=== PATIENT | male | born 1975 | race Caucasian/White ===

== ENCOUNTER 2016-05-13 04:00 | Inpatient (IN) | payer OTHER ==
--- NOTE | ~2016-05-13 | PN ---
Unit #: [id number] #: [id number] Patient: LISA PATRICK [id number] [facility] [address] [place] [address] [id number] MR#: [id number] NAME: LISA PATRICK. ROOM: P210 Age: 40 Sex: M Admission Date: 05/13/2016 : 1975 Attending Physician: Eb Ayala M.D. Admitting Physician: Eb Ayala M.D. Primary Care Physician: Primary Care Physician Akanksha STONE PROGRESS NOTES DATE 05/14/2016 DISCUSSION Mr. Patrick is a 40-year-old white male who was seen today and chart was reviewed and case was discussed with the staff. He has been anxious, withdrawn though has not shown any agitation, irritability and has been cooperative with treatment recommendations and has been taking the medications and tolerating them fairly well with no reported side effects. MENTAL STATUS EXAMINATION Young white male who was casually dressed with fair personal hygiene and appears to be in no acute distress or discomfort. He was awake and alert on interaction with intact orientation. His mood was anxious with congruent affect. He denies any suicidal or homicidal ideations. His insight and judgement remain slightly impaired. TREATMENT PLAN 1. Will continue on his current medications and treatment protocol. Will monitor his response to the medications and make further adjustments as needed. 2. Will continue to follow up. Dictated by... Jennifer Hodgson/tierney TD: 05/15/2016 21:03 JOB #: [id number] Unit #: [id number] #: [id number] Patient: LISA PATRICK RUBENJN PROGRESS NOTES X Eb Ayala MD PROGRESS NOTE
--- NOTE | ~2016-05-13 | PA ---
Unit #: [id number] #: [id number] Patient: LISA PATRICK [id number] [facility] [address] [place] [address] [id number] MR#: [id number] NAME: LISA PATRICK. ROOM: P210 Age: 40 Sex: M Admission Date: 05/13/2016 : 1975 Date of Assessment: Attending Physician: Eb Ayala M.D. Admitting Physician: Eb Ayala M.D. Primary Care Physician: Primary Care Physician No PSYCHIATRIC ASSESSMENT DATE OF SERVICE 05/13/2016. IDENTIFYING DATA Mr. Patrick is a 40-year-old single white male, who is a resident of [place], [place] and was self-referred to the hospital on a voluntary basis. CHIEF COMPLAINT "I'm drinking and drugging." HISTORY OF PRESENT ILLNESS Mr. Patrick is a 40-year-old white male, who was self-referred to the hospital. Upon presentation, reports that he is noting up to half a gram of heroin a day and reports that his last use was early last night and that he had a couple of fifths of alcohol earlier and that he has been having suicidal ideation and thoughts keeping getting stronger and that he has had thoughts of doing something to make his thoughts go away and reports that he has attempted suicide years ago. He reports that he has been using heroin for 6 to 7 years and has been having significant withdrawal symptoms. He also reports increasing depression, anxiety, irritability, restlessness, feelings of hopelessness, and helplessness, and suicidal ideation. SUBSTANCE ABUSE HISTORY The patient reports opioids to be his drug of choice and has been using heroin regularly and has poor social support system. MENTAL STATUS EXAMINATION Young white male, who was casually dressed with fair personal hygiene, appears to be in no acute distress or discomfort. He was awake and alert on interaction with intact orientation to time, place, and person. His mood was anxious and depressed with a congruent affect. His speech was slow and goal directed. His thought processes were disorganized with some looseness of associations and suicidal ideations. His insight and judgment remain significantly impaired. DIAGNOSTIC IMPRESSION Psychiatric: Major depressive disorder, recurrent, moderate, without psychotic features; opioid dependence, moderate. Medical: None. Stressors: Moderate psychosocial stressors. TREATMENT PLAN Unit #: [id number] #: [id number] Patient: LISA PATRICK 1. The patient has presented with history of mood disorder and has been decompensating and will need inpatient hospitalization for safety and stabilization. We will start him back on his home medications. We will adjust the medications and monitor response. 2. Supportive therapy was provided to the patient. WILLINGNESS TO HELP SELF The patient appears to be willing to help self. STRENGTHS 1. Communicative. 2. Cooperative. PROBLEM LIST 1. Chronic dysphoric symptoms. 2. Poor social support system. DISCHARGE CRITERIA This will be contingent upon the patient's ability to go through detox without having any significant withdrawal symptoms as well as his ability to stay safe to himself and others, particularly after discharge from the hospital. Dictated by... Jennifer Hodgson/elle TD: 05/13/2016 07:09 JOB #: [id number] PSYCHIATRIC ASSESSMENT X Eb Ayala MD X PSYCHIATRIC ASSESSMENT
--- NOTE | ~2016-05-13 | HP ---
Unit #: [id number] #: [id number] Patient: SEDRICK LACEY [id number] [place] [address] [id number] I MR#: [id number] NAME: SEDRICK LACEY. ROOM: [facility] Age: 40 Sex: M Admission Date: 05/13/2016 : 1975 Attending Physician: Eb Ayala M.D. Admitting Physician: Eb Ayala M.D. Primary Care Physician: Primary Care Physician No HISTORY AND PHYSICAL HISTORY OF PRESENT ILLNESS Sedrick is a 40-year-old male admitted to [address] [place] [address] on 05/13/2016 for detox from heroin. PAST MEDICAL HISTORY None. PAST SURGICAL HISTORY Inguinal hernia repair. ALLERGIES None. SOCIAL HISTORY He smokes 1 pack of cigarettes daily. Occasional alcohol use and daily use of heroin. He is currently single and living with a friend. FAMILY HISTORY Noncontributory. REVIEW OF SYSTEMS CONSTITUTIONAL: No fever or chills. HEENT: Denies any sore throat, ear pain or runny nose. CARDIOVASCULAR: Denies chest pain, irregular heart rhythm or palpitations. CHEST: Denies shortness of breath or cough. No hemoptysis. GASTROINTESTINAL: Denies nausea, vomiting, diarrhea or chronic constipation. ENDOCRINE: Denies history of increased thirst or urination. No recent significant weight loss or gain. GENITOURINARY: Denies dysuria, frequency, or hematuria. SKIN: Denies any rashes. HEMATOLOGIC: Denies history of increased bleeding or bruising. MUSCULOSKELETAL: Denies any hot, swollen joints. No generalized muscle pain. NEUROLOGIC: Denies problems with vision or speech. No frequent, severe headaches. No numbness, tingling or weakness in any extremities. Denies loss of bladder or bowel control. CURRENT MEDICATIONS None. PHYSICAL EXAMINATION GENERAL: Alert, oriented, in no acute distress. Unit #: [id number] #: [id number] Patient: SEDRICK LACEY VITAL SIGNS: Blood pressure 133/95, heart rate 104. HEIGHT: 5 feet 7. WEIGHT: 168 pounds. SKIN: Warm and dry without rash or lesion. HEENT: Normocephalic. TMs not viewed. Oral and nasal passages clear. Conjunctivae clear. PERRLA. EOMs intact. NECK: Supple without lymphadenopathy or thyromegaly. HEART: Regular rate and rhythm without murmur. LUNGS: Clear. ABDOMEN: Soft, nontender, without masses or hepatosplenomegaly. : Not done. EXTREMITIES: No evidence of cyanosis, clubbing or edema. Moves all without focal deficit. NEUROLOGICAL: Grossly within normal limits. Cranial Nerves: II: Visual maldonado are intact. III, IV AND : Extraocular movements are intact. Pupils are equal, round and reactive to light. V: Facial sensation is grossly normal. VII: Facial movements and expression are normal. VIII: Auditory acuity grossly intact. IX, X: Uvula is midline. Phonation is normal. XI: Patient shrugs shoulders and turns head normally. XII: Tongue protrudes in the midline. Sensory and Motor Function: Sensory and motor sensation is grossly normal. Motor: moves all extremities well. Coordination: Gait is normal. Deep Tendon Reflexes: Intact. IMPRESSION Psychiatric admission. RECOMMENDATIONS PSYCHIATRIC: Per psychiatrist. MEDICAL: No contraindications to participate in facility's activities. MEDICAL PROGNOSIS Good. MEDICAL CONDITION Stable. Dictated by... Shari Hopkins/tierney TD: 05/13/2016 18:47 JOB #: [id number] Unit #: [id number] #: [id number] Patient: SEDRICK LACEY HISTORY AND PHYSICAL X JUAN MOORE APRN X HISTORY AND PHYSICAL
--- NOTE | ~2016-05-13 | PN ---
Unit #: [id number] #: [id number] Patient: LISA PATRICK [id number] [facility] [address] [place] [address] [id number] MR#: [id number] NAME: LISA PATRICK. ROOM: P210 Age: 40 Sex: M Admission Date: 05/13/2016 : 1975 Attending Physician: Eb Ayala M.D. Admitting Physician: Eb Ayala M.D. Primary Care Physician: Primary Care Physician Akanksha STONE PROGRESS NOTES DATE 05/15/2016 DISCUSSION Mr. Patrick is a 40-year-old, white male who was seen today and chart was reviewed and case was discussed with the staff. He has been anxious, withdrawn and seclusive to himself and reports still having some persistent detox symptoms. Meanwhile, he has been taking medications and tolerating them fairly well. MENTAL STATUS EXAM Young white male who was casually dressed with fair personal hygiene, appears to be in slight distress and discomfort. He was awake, alert with intact orientation. His mood was anxious with congruent affect. He denies any suicidal or homicidal ideation. His insight and judgement remains slightly impaired. TREATMENT PLAN 1. We will continue him on his current medications and treatment protocol. We will monitor his response to the medication and make further adjustments as needed. 2. We will continue to follow up. Dictated by... Jennifer Hodgson/masoud TD: 05/18/2016 04:16 JOB #: [id number] Unit #: [id number] #: [id number] Patient: LISA PATRICK RUBENJN PROGRESS NOTES X Eb Ayala MD PROGRESS NOTE
--- NOTE | ~2016-05-13 | DS ---
Unit #: [id number] #: [id number] [facility]CK [id number] [facility] [address] [place] [address] [id number] MR#: [id number] NAME: LISA PATRICK ROOM: [facility] Age: 40 Sex: M Admission Date: 05/13/2016 : 1975 Discharge Date: 05/17/2016 Attending Physician: Eb Ayala M.D. Primary Care Physician: Primary Care Physician No DISCHARGE SUMMARY IDENTIFYING DATA Mr. Patrick is a 40-year-old single white male, who is a resident of [place], [place] and was self-referred to the hospital on a voluntary basis. DISCHARGE DIAGNOSES Psychiatric: Major depressive disorder, recurrent, moderate, without psychotic features; opioid dependence, moderate. Medical: None. Stressors: Moderate psychosocial stressors. HISTORY OF PRESENT ILLNESS Please see initial psychiatric evaluation for details. PAST PSYCHIATRIC HISTORY Please see initial psychiatric evaluation for details. PAST MEDICAL HISTORY Please see initial psychiatric evaluation for details. HOSPITAL COURSE The patient was admitted to the adult chemical dependency and psychiatric unit at [facility] and was oriented to the hospital environment. Routine p.r.n. medications were initiated, and he was started back on his home medications and detox protocol was initiated and was closely monitored. He was taking the medications regularly and was tolerating them fairly well and was able to show a decent and therapeutic response and was willing to continue treatment on an outpatient basis and as such, it was decided that he will be discharged home and will continue treatment on an outpatient basis. DISCHARGE MEDICATIONS None. DISCHARGE CONDITION Stable. PROGNOSIS Fair. Dictated by... Eb Ayala M.D. Unit #: [id number] #: [id number] Patient: LISA PATRICK IAA/modl TD: 05/17/2016 06:57 JOB #: [id number] DISCHARGE SUMMARY X Eb Ayala MD X DISCHARGE SUMMARY
[2016-05-14 09:33] LABS: BASOPHIL# 0.1 X10e3 (0-0.3); BASOPHIL% 0.7 % (0-2.5); EOSINOPHIL# 0.1 X10e3 (0-0.7); EOSINOPHIL% 1.9 % (0.0-7.0); HEMATOCRIT 40.8 % (38.0-50.0); HEMOGLOBIN 13.6 gm/dL (13.0-16.0); LYMPHOCYTE# 1.7 X10e3 (1.0-3.5); LYMPHOCYTE% 21.5 % (17.0-45.0); MEAN CELL VOLUME 88.6 FL (83-96); MEAN CORPUSCULAR HEMOGLOBIN 29.6 PG (28-34); MEAN CORPUSCULAR HGB CONC 33.4 g/dL (30-36); MEAN PLATELET VOLUME 8.6 FL (6.5-11.5); MONOCYTE# 0.7 X10e3 (0-1.0); NEUTROPHIL# 5.2 X10e3 (1.5-7.1); NEUTROPHIL% 66.9 % (40-75); PLATELET COUNT 239 X10e3 (140-420); RED CELL DISTRIBUTION WIDTH 13.1 % (11.0-15.5); WHITE BLOOD COUNT 7.7 X10e3 (4.0-10.5)
[2016-05-14 09:40] LABS: DIFF IND NO
[2016-05-14 09:53] LABS: THYROID STIMULATING HORMONE 0.1 uIU/ml (0.34-5.60)
[2016-05-14 10:03] LABS: ALBUMIN SERUM 3.2 g/dL (3.5-5.0); ALKALINE PHOSPHATASE 75 U/L (32-92); ALT (SGPT) 30 U/L (10-40); AST (SGOT) 23 U/L (10-42); BILIRUBIN,TOTAL 0.6 mg/dL (0.2-2.0); BLOOD UREA NITROGEN 11 mg/dL (9-23); BUN/CREATININE RATIO 15.71; CALCIUM SERUM 8.8 mg/dL (8.4-10.2); CARBON DIOXIDE 26 mmol/L (22-31); CHLORIDE 104 mmol/L (100-111); CREATININE SERUM 0.7 mg/dL (0.6-1.4); FREE THYROXIN (T4) 0.98 ng/dL (0.58-1.64); GLOM FILT RATE Estimated ABOVE60 mL/min (>60); GLUCOSE FASTING 141 mg/dL (70-110); POTASSIUM 3.7 mmol/L (3.5-5.1); PROTEIN TOTAL SERUM 5.7 g/dL (6.0-8.3); SODIUM 140 mmol/L (135-145)
[2016-05-15 13:46] LABS: URINE APPEARANCE CLEAR; URINE BILIRUBIN NEG (NEG); URINE BLOOD NEG (NEG); URINE COLOR YELLOW; URINE GLUCOSE NEG (NEG); URINE KETONE NEG (NEG); URINE LEUKOCYTE ESTERASE NEG (NEG); URINE NITRATE NEG (NEG); URINE PROTEIN NEG (NEG); URINE SPECIFIC GRAVITY 1.015 (1.003-1.035); URINE UROBILINOGEN 0.2 MG/DL (NEG)
[2016-05-15 14:00] LABS: AMPHETAMINE POS (NEG); BARBITURATES NEG (NEG); BENZODIAZEPINES NEG (NEG); COCAINE NEG (NEG); MARIJUANA POS (NEG); OPIATES POS (NEG); TRICYCLIC ANTIDEPRESSANTS NEG (NEG); U METHADONE NEG (NEG)
== END 2016-05-17 10:10 | DRG 885 ==
LOC: P2S 04:00
PROVIDERS: Psychiatry & Neurology Psychiatry
PROC: HZ2ZZZZ Detoxification Services for Substance Abuse Treatment (ICD-10-PCS; principal; 2016-05-13)
DX: F33.1 Major depressive disorder, recurrent, moderate (principal); F10.20 Alcohol dependence, uncomplicated; F17.200 Nicotine dependence, unspecified, uncomplicated
CPT/HCPCS: 80053; 80307; 81003; 84439; 84443; 85025; 86592

== ENCOUNTER 2016-05-18 05:27 | Inpatient (IN) | payer OTHER ==
--- NOTE | ~2016-05-18 | DS ---
Unit #: [id number] #: [id number] Patient: LISA LACEY [id number] [facility] [place] [address] [id number] I MR#: [id number] NAME: LISA LACEY. ROOM: [facility] Age: 40 Sex: M Admission Date: 05/18/2016 : 1975 Discharge Date: 05/21/2016 Attending Physician: Eb Ayala M.D. Primary Care Physician: Primary Care Physician No DISCHARGE SUMMARY IDENTIFYING DATA Mr. Lacey is a 40-year-old single white male who is a resident of [place], [place] and was self-referred to the hospital on voluntary basis. DISCHARGE DIAGNOSES Psychiatric: Major depressive disorder, recurrent, moderate, without psychotic features; opioid abuse, moderate; methamphetamine abuse, moderate; alcohol abuse, moderate. Medical: None. Stressors: Moderate psychosocial stressors. HISTORY OF PRESENT ILLNESS Please see initial psychiatric evaluation for details. PAST PSYCHIATRIC HISTORY Please see initial psychiatric evaluation for details. PAST MEDICAL HISTORY Please see initial psychiatric evaluation for details. HOSPITAL COURSE The patient was admitted to the adult psychiatric unit at [facility] and was oriented to the hospital environment. Routine p.r.n. medications were initiated, and he was started back on his home medications and was closely monitored. He was taking the medications regularly and was tolerating them fairly well and was able to show a decent therapeutic response with improvement in depression and anxiety and was willing to continue treatment on an outpatient basis and as such, it was decided that he will be discharged home and will continue treatment on an outpatient basis. DISCHARGE MEDICATIONS Celexa 20 mg a day for depression, Vistaril 50 mg t.i.d. for anxiety, doxepin 50 mg at bedtime for sleep. DISCHARGE CONDITION Stable. PROGNOSIS Fair. Dictated by... Unit #: [id number] #: [id number] Patient: LISA LACEY Jennifer Hodgson/elle TD: 05/21/2016 07:22 JOB #: [id number] DISCHARGE SUMMARY X Eb Ayala MD X DISCHARGE SUMMARY
--- NOTE | ~2016-05-18 | PN ---
Unit #: [id number] #: [id number] Patient: LISA PATRICK [id number] [facility] [address] [place] [address] [id number] I MR#: [id number] NAME: LISA PATRICK. ROOM: [facility] Age: 40 Sex: M Admission Date: 05/18/2016 : 1975 Attending Physician: Eb Ayala M.D. Admitting Physician: Eb Ayala M.D. Primary Care Physician: Primary Care Physician Akanksha STONE PROGRESS NOTES DATE 05/20/2016 DISCUSSION Mr. Patrick is a 40-year-old white male who was seen today and chart was reviewed and case was discussed with the staff. He has been anxious, withdrawn, depressed and rather seclusive to himself. Meanwhile, he has been cooperative with treatment recommendations and has been taking medications and tolerating them fairly well with no reported side effects. MENTAL STATUS EXAMINATION Young white male who was casually dressed with fair personal hygiene and appears to be in no acute distress or discomfort. He was awake and alert on interaction with intact orientation. His mood was anxious with congruent affect. His speech is slow and goal-directed. He denies any suicidal or homicidal ideations and also denies any auditory or visual hallucinations. His insight and judgement remains slightly impaired. TREATMENT PLAN 1. Will continue his current medications and treatment protocol. Will monitor his response to the medications and make further adjustments as needed. 2. Will continue to follow up. Dictated by... Jennifer Hodgson/tierney TD: 05/21/2016 16:53 JOB #: [id number] Unit #: [id number] #: [id number] Patient: LISA PATRICK BERTHA PROGRESS NOTES X Eb Ayala MD PROGRESS NOTE
--- NOTE | ~2016-05-18 | HP ---
Unit #: [id number] #: [id number] Patient: SEDRICK LACEY [id number] [facility] [address] [place] [address] [id number] MR#: [id number] NAME: SEDRICK LACEY. ROOM: [facility] Age: 40 Sex: M Admission Date: 05/18/2016 : 1975 Attending Physician: Eb Ayala M.D. Admitting Physician: Eb Ayala M.D. Primary Care Physician: Primary Care Physician No HISTORY AND PHYSICAL HISTORY OF PRESENT ILLNESS Sedrick is a 40 year old admitted to [facility] because of his continued drug use. The patient was seen and H and P dated 05/13/2016 was reviewed. This is current. No changes. Please see H and P dated 05/13/2016. Dictated by... Suni Ayers P.A.-C. for Jennifer Allen/masoud TD: 05/19/2016 02:45 JOB #: [id number] HISTORY AND PHYSICAL X Suni Ayers HISTORY AND PHYSICAL
--- NOTE | ~2016-05-18 | PN ---
Unit #: [id number] #: [id number] Patient: LISA PATRICK [id number] [facility] [address] [place] [address] [id number] I MR#: [id number] NAME: LISA PATRICK. ROOM: [facility] Age: 40 Sex: M Admission Date: 05/18/2016 : 1975 Attending Physician: Eb Ayala M.D. Admitting Physician: Eb Ayala M.D. Primary Care Physician: Primary Care Physician Akanksha CASTILLO NOTES DATE OF SERVICE: 05/19/2016 SUBJECTIVE Mr. Patrick is a 40-year-old white male, who was seen today and chart was reviewed, and case was discussed with the staff. He has been anxious, withdrawn, and rather seclusive to himself. Meanwhile, he has been cooperative with treatment recommendations and has been taking medications and tolerating them fairly well with no reported side effects. MENTAL STATUS EXAMINATION Young white male, who was casually dressed with fair personal hygiene, appears to be in no acute distress or discomfort. He was awake and alert on interaction with intact orientation. His mood was anxious with a congruent affect. His speech was slow and goal directed. He denies any suicidal or homicidal ideations. His insight and judgment remain slightly impaired. TREATMENT PLAN 1. We will continue him on his current medications and treatment protocol. We will monitor his response to the medications and make further adjustments as needed. 2. We will continue to follow up. Dictated by... Jennifer Hodgson/elle TD: 05/20/2016 04:47 JOB #: [id number] [facility] PROGRESS NOTES X Eb Ayala MD PROGRESS NOTE
--- NOTE | ~2016-05-18 | PN ---
Unit #: [id number] #: [id number] Patient: LISA PATRICK [id number] [facility] [address] [place] [address] [id number] I MR#: [id number] NAME: LISA PATRICK. ROOM: [facility] Age: 40 Sex: M Admission Date: 05/18/2016 : 1975 Attending Physician: Eb Ayala M.D. Admitting Physician: Eb Ayala M.D. Primary Care Physician: Primary Care Physician Akanksha STONE PROGRESS NOTES DATE OF SERVICE: 05/16/2016 SUBJECTIVE Mr. Patrick is a 40-year-old white male who was seen today and chart was reviewed and case was discussed with the staff. He has been doing better and reports still being in distress or discomfort. Meanwhile, he has been taking the medications and tolerating them fairly well. MENTAL STATUS EXAMINATION Young white male who was casually dressed with a fair personal hygiene and appears to be in no acute distress or discomfort. He was awake and alert on intact orientation. His mood was anxious with a congruent affect. He denies any suicidal or homicidal ideations. His insight and judgment remain slightly impaired. TREATMENT PLAN 1. We will continue him on his current treatment protocol. We will monitor his response and make further adjustments as needed. 2. We will continue to follow up. Dictated by... Jennifer Hodgson/elle TD: 05/18/2016 03:53 JOB #: [id number] [facility] PROGRESS NOTES X Eb Ayala MD PROGRESS NOTE
--- NOTE | ~2016-05-18 | PA ---
Unit #: [id number] #: [id number] Patient: LISA PATRICK [id number] [facility] [address] [place] [address] [id number] MR#: [id number] NAME: LISA PATRICK. ROOM: [facility] Age: 40 Sex: M Admission Date: 05/18/2016 : 1975 Date of Assessment: 05/18/2016 Attending Physician: Eb Ayala M.D. Admitting Physician: Eb Ayala M.D. Primary Care Physician: Primary Care Physician No PSYCHIATRIC ASSESSMENT DATE OF SERVICE 05/18/2016. IDENTIFYING DATA Mr. Patrick is a 40-year-old single white male who is a resident of [place], [place] and was just discharged from my care yesterday and was self-referred back to the hospital. CHIEF COMPLAINT "I have been feeling overwhelmed and I'm suicidal." HISTORY OF PRESENT ILLNESS Mr. Patrick is a 40-year-old white male with history of mood disorder, who was just discharged from my care yesterday and self-referred back to the hospital reporting increasing depression, stating that after being discharged from this facility, he felt overwhelmed with idea of not having medication to leave with his depression and reports having heavy chest and not breathing due to having panic attacks, and reports not feeling safe while at his friend's house, he found a gun and wanting to end his life and while his friend was in the shower he found his friend's gun and was looking for the bullet. When his friend came out of the shower and the patient told his friend he wanted to end his life and he was wanting the bullets and friend called [facility] and brought him here for assessment. On evaluation by me, the patient was seen to be very withdrawn, depressed, reports feeling overwhelmed and stressed out, and reports feelings of hopelessness and helplessness, and suicidal ideations with intent and plan. SUBSTANCE ABUSE HISTORY The patient reports history of alcohol, opioids, and methamphetamine abuse with the last use of opioids and methamphetamine on 05/12/2016 and last use of alcohol last night. PAST PSYCHIATRIC HISTORY The patient has had history of multiple inpatient psychiatric hospital[facility], [facility], [facility], [facility], [facility] and review of the medical records indicate that currently he is not active in any treatment program, is not seeing a psychiatrist, and not taking any psychotropic medications. PAST MEDICAL HISTORY No acute or chronic medical illnesses. Unit #: [id number] #: [id number] Patient: LISA PATRICK ALLERGIES No known medication allergies. PERSONAL AND SOCIAL HISTORY A 40-year-old white male who reports that he is single, unemployed, and essentially homeless and has poor social support system. MENTAL STATUS EXAMINATION Young white male who was casually dressed with fair personal hygiene, appears to be in no acute distress or discomfort. He was awake and alert on interaction with intact orientation to time, place, and person. His mood was anxious and depressed with a congruent affect. His speech was slow and restricted in content. His thought processes were disorganized with some looseness of associations and flight of ideas, and suicidal ideations. His insight and judgment remain significantly impaired. DIAGNOSTIC IMPRESSION Psychiatric: Major depressive disorder, recurrent, moderate, without psychotic features; opioid abuse, moderate; methamphetamine abuse, moderate; alcohol abuse, moderate. Medical: None. Stressors: Moderate psychosocial stressors. TREATMENT PLAN 1. The patient has presented with a history of substance abuse and mood disorder, and has been decompensating and will need inpatient hospitalization for safety and stabilization. We will start him back on his home medications. We will adjust the medications and monitor response. 2. Supportive therapy was provided to the patient. ESTIMATED LENGTH OF STAY 5 to 7 days. ABILITY TO HELP SELF Limited. WILLINGNESS TO HELP SELF The patient appears to be willing to help self. STRENGTHS 1. Communicative. 2. Cooperative. PROBLEMS 1. Chronic dysphoric symptoms. 2. Poor social support system. DISCHARGE CRITERIA This will be contingent upon the patient's ability to show resolution of his depression and anxiety, and his ability to stay safe to himself, particularly after discharge from the hospital. Dictated by... Jennifer Hodgson/elle Unit #: [id number] #: [id number] Patient: LISA PATRICK TD: 05/19/2016 02:01 JOB #: [id number] PSYCHIATRIC ASSESSMENT X Eb Ayala MD X PSYCHIATRIC ASSESSMENT
== END 2016-05-21 10:00 | disposition home or self-care (01) | DRG 885 ==
LOC: P2L 05:27
PROC: HZ2ZZZZ Detoxification Services for Substance Abuse Treatment (ICD-10-PCS; principal; 2016-05-18)
DX: F33.1 Major depressive disorder, recurrent, moderate (principal); F11.10 Opioid abuse, uncomplicated; F15.10 Other stimulant abuse, uncomplicated; F10.10 Alcohol abuse, uncomplicated; F17.210 Nicotine dependence, cigarettes, uncomplicated

== ENCOUNTER 2016-06-09 00:31 | Inpatient (IN) | payer OTHER ==
--- NOTE | ~2016-06-09 | PN ---
Unit #: [id number] #: [id number] Patient: LISA PATRICK [id number] [facility] [address] [place] [address] [id number] MR#: [id number] NAME: LISA PATRICK. ROOM: P208 Age: 40 Sex: M Admission Date: 06/09/2016 : 1975 Attending Physician: Eb Ayala M.D. Admitting Physician: Eb Ayala M.D. Primary Care Physician: Primary Care Physician Akanksha STONE PROGRESS NOTES DATE 06/14/2016 DISCUSSION Mr. Patrick is a 40-year-old, white male who was seen today and chart was reviewed and case was discussed with the staff. He has been anxious, withdrawn though has not shown any agitation and appears to be doing better coming out of the detox. He has been taking medications and tolerating them fairly well with no reported side effects. MENTAL STATUS EXAM Young white male who was casually dressed with fair personal hygiene, appears to be in no acute distress or discomfort. He was awake and alert on interaction with intact orientation. His mood was anxious with congruent affect. His speech was slow and goal directed. He denies any suicidal or homicidal ideation. His insight and judgement remains slightly impaired. TREATMENT PLAN 1. We will continue him on his current treatment protocol. We will monitor his response to medication and make further adjustments as needed. 2. We will continue to follow up. Dictated by... Jennifer Hodgson/masoud TD: 06/16/2016 04:27 JOB #: [id number] Unit #: [id number] #: [id number] Patient: LISA PATRICK PROGRESS NOTES Page 1 of 1 X Eb Ayala MD PROGRESS NOTE
--- NOTE | ~2016-06-09 | PN ---
Unit #: [id number] #: [id number] Patient: LISA PATRICK [id number] [facility] [address] [place] [address] [id number] MR#: [id number] NAME: LISA PATRICK. ROOM: P208 Age: 40 Sex: M Admission Date: 06/09/2016 : 1975 Attending Physician: Eb Ayala M.D. Admitting Physician: Eb Ayala M.D. Primary Care Physician: Primary Care Physician Akanksha CASTILLO NOTES DATE OF SERVICE 06/10/2016 DISCUSSION Mr. Patrick is a 40-year-old white male who was seen today. Chart was reviewed and case was discussed with the staff. He has been anxious, withdrawn, and seclusive to himself as he was lying in his bed and reports not feeling good and reports mood swings, irritability, and significant detox symptoms, and described himself to be in distress and discomfort. MENTAL STATUS EXAMINATION Young white male who is casually dressed with fair personal hygiene and appears to be in no acute distress or discomfort. He was awake and alert with impaired attention and concentration. His mood is anxious with a congruent affect. Speech is slow and restricted in content. His thought processes were disorganized with some looseness of associations. His insight and judgment remain significantly impaired. TREATMENT PLAN 1. We will continue him on his current medications and treatment protocol. We will monitor his response to the medications and make further adjustments as needed. 2. We will continue to follow up. Dictated by... Jennifer Hodgson/nobleg TD: 06/11/2016 11:19 JOB #: [id number] Unit #: [id number] #: [id number] Patient: LISA PATRICK BERTHA PROGRESS NOTES Page 1 of 1 X Eb Ayala MD PROGRESS NOTE
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
--- NOTE | ~2016-06-09 | PN ---
Unit #: [id number] #: [id number] Patient: LISA PATRICK [id number] [facility] [address] [place] [address] [id number] MR#: [id number] NAME: LISA PATRICK. ROOM: P208 Age: 40 Sex: M Admission Date: 06/09/2016 : 1975 Attending Physician: Eb Ayala M.D. Admitting Physician: Eb Ayala M.D. Primary Care Physician: Primary Care Physician Akanksha STONE PROGRESS NOTES DATE OF SERVICE: 06/12/2016 SUBJECTIVE Mr. Patrick is a 40-year-old white male who was seen today and chart was reviewed, and case was discussed with the staff. He has been anxious, withdrawn, though has not shown any agitation, irritability, or behavior problems, and has been cooperative with treatment recommendations and has been taking the medications and tolerating them fairly well with no reported side effects. MENTAL STATUS EXAMINATION Young white male who was casually dressed with fair personal hygiene, appears to be in no acute distress or discomfort. He was awake and alert on interaction with intact orientation. His mood was anxious with a congruent affect. His speech was slow and restricted in content. He denies any suicidal or homicidal ideation, and also denies any auditory or visual hallucinations. His insight and judgment remain slightly impaired. TREATMENT PLAN 1. We will continue him on his current medications and treatment protocol. We will monitor his response and make further adjustments as needed. 2. We will continue to follow up. Dictated by... Jennifer Hodgson/elle TD: 06/12/2016 16:32 JOB #: [id number] Unit #: [id number] #: [id number] Patient: LISA PATRICK PROGRESS NOTES Page 1 of 1 X Eb Ayala MD PROGRESS NOTE
--- NOTE | ~2016-06-09 | PN ---
Unit #: [id number] #: [id number] Patient: LISA PATRICK [id number] [facility] [address] [place] [address] [id number] I MR#: [id number] NAME: LISA PATRICK. ROOM: P208 Age: 40 Sex: M Admission Date: 06/09/2016 : 1975 Attending Physician: Eb Ayala M.D. Admitting Physician: Eb Ayala M.D. Primary Care Physician: Primary Care Physician Akanksha CASTILLO NOTES DATE OF SERVICE 06/11/2016 DISCUSSION Mr. Patrick is a 40-year-old white male who was seen today. Chart was reviewed and case was discussed with the staff. The patient has been anxious, withdrawn, and in distress and discomfort and seclusive to himself. Reports not feeling much better. Meanwhile, he has been taking the medications and tolerating them fairly well with no reported side effects. MENTAL STATUS EXAMINATION Young white male who is casually dressed with fair personal hygiene, appears to be in no acute distress or discomfort. He was awake and alert on interaction with intact orientation. His mood is anxious with congruent affect. His speech is slow and restricted in content. He denies any suicidal or homicidal ideations. His insight and judgment remain slightly impaired. TREATMENT PLAN 1. We will continue him on his current medications and treatment protocol. We will monitor his response to the medications and make further adjustments as needed. 2. We will continue to follow up. Dictated by... Eb Ayala M.D. IAA/bzg TD: 06/11/2016 11:25 JOB #: [id number] Unit #: [id number] #: [id number] Patient: LISA PATRICK PROGRESS NOTES Page 1 of 1 X Eb Ayala MD PROGRESS NOTE
--- NOTE | ~2016-06-09 | DS ---
Unit #: [id number] #: [id number] [facility]: [facility] [id number] [facility] [address] [place] [address] [id number] MR#: [id number] NAME: LISA PATRICK. ROOM: P208 Age: 40 Sex: M Admission Date: 06/09/2016 : 1975 Discharge Date: 06/15/2016 Attending Physician: Eb Ayala M.D. DISCHARGE SUMMARY IDENTIFYING DATA Mr. Patrick is a 40-year-old single white male, who is a resident of [place], [place], and is known to us from previous encounter, and was self-referred to the hospital on a voluntary basis. DISCHARGE DIAGNOSES Psychiatric: Major depressive disorder, recurrent, moderate, with psychosis; opioid dependence, moderate and acute withdrawals; methamphetamine dependence, moderate. Medical: None. Stressors: Moderate psychosocial stressors. HISTORY OF PRESENT ILLNESS Please see initial psychiatric evaluation for details. PAST PSYCHIATRIC HISTORY Please see initial psychiatric evaluation for details. PAST MEDICAL HISTORY Please see initial psychiatric evaluation for details. HOSPITAL COURSE The patient was admitted to the adult psychiatric and chemical dependency unit at [facility] and was oriented to the hospital environment. Routine p.r.n. medications were initiated, and he was started back on his home medications and detox protocol was initiated, and he was also started back on his Effexor and Seroquel and was closely monitored. He was taking the medications regularly and was tolerating them fairly well and was able to show a decent and therapeutic response with improvement in depressive symptoms and was willing to continue treatment on an outpatient basis and was denying any suicidal or homicidal ideations, and was not seen to be a danger to self or anyone else, and as such, it was decided that he will be discharged home and will continue treatment on an outpatient basis. DISCHARGE MEDICATIONS Seroquel 100 mg at bedtime for mood disorder, and Effexor XR 75 mg in the morning for depression. DISCHARGE CONDITION Stable. PROGNOSIS Fair. Unit #: [id number] #: [id number] Patient: LISA PATRICK Dictated by... Eb Ayala M.D. IAA/modl TD: 06/15/2016 07:56 JOB #: [id number] DISCHARGE SUMMARY Page 1 of 1 X Eb Ayala MD DISCHARGE SUMMARY
--- NOTE | ~2016-06-09 | HP ---
Unit #: [id number] #: [id number] Patient: LISA LACEY [id number] [facility] [address] [place] [address] [id number] I MR#: [id number] NAME: LISA LACEY. ROOM: P208 Age: 40 Sex: M Admission Date: 06/09/2016 : 1975 Attending Physician: Eb Ayala M.D. Admitting Physician: Eb Ayala M.D. Primary Care Physician: Primary Care Physician No HISTORY AND PHYSICAL HISTORY OF PRESENT ILLNESS The patient is a 40 year old admitted to [address] [place] [address] because of his continued drug use. He has had numerous admissions to this facility for treatment of the same. The patient was seen and H and P dated 05/13/2016 was reviewed. This is current. No changes. Please see H and P dated 05/13/2016. Dictated by... Suni Ayers P.A.-C. for Jennifer Allen/tam TD: 06/10/2016 07:33 JOB #: [id number] HISTORY AND PHYSICAL Page 1 of 1 X Suni Ayers HISTORY AND PHYSICAL
--- NOTE | ~2016-06-09 | PN ---
Unit #: [id number] #: [id number] Patient: LISA PATRICK [id number] [facility] [address] [place] [address] [id number] MR#: [id number] NAME: LISA PATRICK. ROOM: P208 Age: 40 Sex: M Admission Date: 06/09/2016 : 1975 Attending Physician: Eb Ayala M.D. Admitting Physician: Eb Ayala M.D. Primary Care Physician: Primary Care Physician Akanksha CASTILLO NOTES DATE OF SERVICE: 06/13/2016 SUBJECTIVE Mr. Patrick is a 40-year-old white male who was seen today and chart was reviewed, and case was discussed with the staff. He has been anxious, withdrawn, though has not shown any agitation and has been cooperative with treatment recommendations, and has been taking the medications and tolerating them fairly well with no reported side effects. MENTAL STATUS EXAMINATION Young white male who was casually dressed with fair personal hygiene, appears to be in no acute distress or discomfort. He was awake and alert on interaction with intact orientation. His mood was anxious with a congruent affect. He denies any suicidal or homicidal ideation. His insight and judgment remain slightly impaired. TREATMENT PLAN 1. We will continue him on his current treatment protocol. We will monitor his response and make further adjustments as needed. 2. We will continue to follow up. Dictated by... Jennifer Hodgson/elle TD: 06/13/2016 13:23 JOB #: [id number] BERTHA PROGRESS NOTES Page 1 of 1 X Eb Ayala MD PROGRESS NOTE
[2016-06-09 09:39] LABS: BASOPHIL% 0.5 % (0-2.5); EOSINOPHIL# 0.2 X10e3 (0-0.7); EOSINOPHIL% 2.4 % (0.0-7.0); HEMATOCRIT 43.5 % (38.0-50.0); HEMOGLOBIN 14.5 gm/dL (13.0-16.0); LYMPHOCYTE# 1.8 X10e3 (1.0-3.5); LYMPHOCYTE% 24.2 % (17.0-45.0); MEAN CORPUSCULAR HEMOGLOBIN 29.2 PG (28-34); MEAN CORPUSCULAR HGB CONC 33.2 g/dL (30-36); MEAN PLATELET VOLUME 8.5 FL (6.5-11.5); MONOCYTE# 0.9 X10e3 (0-1.0); MONOCYTE% 11.8 % (3.0-12.0); NEUTROPHIL# 4.5 X10e3 (1.5-7.1); NEUTROPHIL% 61.1 % (40-75); PLATELET COUNT 239 X10e3 (140-420); RED BLOOD COUNT 4.95 X10e (3.90-5.60); RED CELL DISTRIBUTION WIDTH 13.3 % (11.0-15.5); WHITE BLOOD COUNT 7.4 X10e3 (4.0-10.5)
[2016-06-09 09:42] LABS: DIFF IND NO
[2016-06-09 10:06] LABS: THYROID STIMULATING HORMONE 0.68 uIU/ml (0.34-5.60)
[2016-06-09 10:13] LABS: FREE THYROXIN (T4) 1.04 ng/dL (0.58-1.64)
[2016-06-09 10:22] LABS: ALBUMIN SERUM 3.3 g/dL (3.5-5.0); BILIRUBIN,TOTAL 0.4 mg/dL (0.2-2.0); BUN/CREATININE RATIO 13.33; CALCIUM SERUM 8.8 mg/dL (8.4-10.2); CREATININE SERUM 0.6 mg/dL (0.6-1.4); GLOM FILT RATE Estimated 127.6 mL/min (>60); POTASSIUM 3.2 mmol/L (3.5-5.1); PROTEIN TOTAL SERUM 6.3 g/dL (6.0-8.3)
== END 2016-06-15 08:40 | DRG 885 ==
LOC: P2S 00:31
PROVIDERS: Psychiatry & Neurology Psychiatry
PROC: HZ2ZZZZ Detoxification Services for Substance Abuse Treatment (ICD-10-PCS; principal; 2016-06-09)
DX: F33.1 Major depressive disorder, recurrent, moderate (principal); F15.20 Other stimulant dependence, uncomplicated; F11.23 Opioid dependence with withdrawal; F29 Unspecified psychosis not due to a substance or known physiological condition; Z56.0 Unemployment, unspecified; Z59.0 Homelessness
CPT/HCPCS: 80053; 84439; 84443; 85025; 86592

== ENCOUNTER 2016-07-02 03:14 | Inpatient (IN) | payer OTHER ==
--- NOTE | ~2016-07-02 | DS ---
Unit #: [id number] #: [id number] Patient: LISA PATRICK [id number] [address] [place] [address] [id number] MR#: [id number] NAME: LISA PATRICK ROOM: [facility] Age: 40 Sex: M Admission Date: 07/02/2016 : 1975 Discharge Date: 07/05/2016 Attending Physician: Eb Ayala M.D. Primary Care Physician: Primary Care Physician No DISCHARGE SUMMARY IDENTIFYING DATA Mr. Patrick is a 40-year-old white male, who is known to us from previous encounter, and was self-referred to the hospital. DISCHARGE DIAGNOSES Psychiatric: Major depressive disorder, recurrent, moderate, without psychotic features. Medical: None. Stressors: Moderate psychosocial stressors. HISTORY OF PRESENT ILLNESS Please see initial psychiatric evaluation for details. PAST PSYCHIATRIC HISTORY Please see initial psychiatric evaluation for details. PAST MEDICAL HISTORY Please see initial psychiatric evaluation for details. HOSPITAL COURSE The patient was admitted to the adult inpatient psychiatric unit at [facility]ner [facility] and was oriented to the hospital environment. Routine p.r.n. medications were initiated, and he was started on Celexa 20 mg a day as an antidepressant and was closely monitored. He was taking medications regularly. He was tolerating them fairly well and was able to show a fairly decent therapeutic response and as such, it was decided that will be discharged home and will continue treatment on an outpatient basis. DISCHARGE MEDICATIONS Remeron 15 mg at bedtime. DISCHARGE CONDITION Stable. PROGNOSIS Fair. Dictated by... Jennifer Hodgson/elle TD: 07/28/2016 00:58 Unit #: [id number] #: [id number] Patient: LISA PATRICK JOB #: [id number] DISCHARGE SUMMARY Page 1 of 1 X Eb Ayala MD X DISCHARGE SUMMARY
--- NOTE | ~2016-07-02 | PN ---
Unit #: [id number] #: [id number] Patient: LISA PATRICK [id number] [facility] [address] [place] [address] [id number] MR#: [id number] NAME: LISA PATRICK. ROOM: P201 Age: 40 Sex: M Admission Date: 07/02/2016 : 1975 Attending Physician: Eb Ayala M.D. Admitting Physician: Eb Ayala M.D. Primary Care Physician: Primary Care Physician Akanksha CASTILLO NOTES DATE OF SERVICE: 07/05/2016 SUBJECTIVE Mr. Patrick is a 40-year-old white male who was seen today and chart was reviewed, and case was discussed with the staff. He has been anxious, withdrawn, and rather seclusive to himself, though appears to be doing better and coming out of the detox without any complications. He has been taking the medications and tolerating them fairly well. MENTAL STATUS EXAMINATION Young white male who was casually dressed with fair personal hygiene, appears to be in no acute distress or discomfort. He was awake and alert on interaction with intact orientation. His mood was anxious with a congruent affect. He denies any suicidal or homicidal ideations, and also denies any auditory or visual hallucinations. His insight and judgment remain slightly impaired. TREATMENT PLAN 1. We will continue him on his current medications and treatment protocol. We will monitor his response to the medications and make further adjustments as needed. 2. We will continue to follow up. Dictated by... Jennifer Hodgson/elle TD: 07/05/2016 19:24 JOB #: [id number] BERTHA PROGRESS NOTES Page 1 of 1 X Eb Ayala MD X PROGRESS NOTE
--- NOTE | ~2016-07-02 | PN ---
Unit #: [id number] #: [id number] Patient: LISA PATRICK [id number] [facility] [address] [place] [address] [id number] MR#: [id number] NAME: ILSA PATRICK. ROOM: P201 Age: 40 Sex: M Admission Date: 07/02/2016 : 1975 Attending Physician: Eb Ayala M.D. Admitting Physician: Eb Ayala M.D. Primary Care Physician: Primary Care Physician Akanksha STONE PROGRESS NOTES DATE 07/03/2016 DISCUSSION Mr. Patrick is a 40-year-old, white male who was seen today and chart was reviewed and case was discussed with the staff. He has been anxious, withdrawn and rather seclusive to himself. Meanwhile, he has been cooperative with treatment recommendations. He has been taking the medication and tolerating them fairly well with no reported side effects. MENTAL STATUS EXAM Young white male who was casually dressed with fair personal hygiene, appears to be in no acute distress or discomfort. He was awake and alert on interaction with intact orientation. His mood was anxious with congruent affect. His speech was slow and goal directed. He denies any suicidal or homicidal ideation. Also, denies any auditory or visual hallucinations. His insight and judgement remains slightly impaired. TREATMENT PLAN 1. We will continue him on his current medications and treatment protocol. We will monitor his response and make further adjustments as needed. 2. We will continue to follow up. Dictated by... Jennifer Hodgson/masoud TD: 07/05/2016 01:14 JOB #: [id number] Unit #: [id number] #: [id number] Patient: LISA PATRICK RUBENJN PROGRESS NOTES Page 1 of 1 X Eb Ayala MD PROGRESS NOTE
--- NOTE | ~2016-07-02 | PN ---
Unit #: [id number] #: [id number] Patient: LISA PATRICK [id number] [facility] [address] [place] [address] [id number] MR#: [id number] NAME: LISA PATRICK. ROOM: P201 Age: 40 Sex: M Admission Date: 07/02/2016 : 1975 Attending Physician: Eb Ayala M.D. Admitting Physician: Eb Ayala M.D. Primary Care Physician: Primary Care Physician Akanksha CASTILLO NOTES DATE July 04, 2016 DISCUSSION Mr. Patrick is a 40-year-old white male, who was seen today and chart was reviewed and the case was discussed with the staff. He has been anxious, withdrawn, depressed, and rather seclusive to himself. Meanwhile, he has been cooperative with the treatment recommendations and he has been taking the medications and tolerating them fairly well with no reported side effects. MENTAL STATUS EXAMINATION Young white male, who was casually dressed with a fair personal hygiene and appears to be in no acute distress or discomfort. He was awake and alert with intact orientation. His mood is anxious with a congruent affect. He denies any suicidal or homicidal ideations. His insight and judgment remain slightly impaired. TREATMENT PLAN 1. We will continue him on his current medications and treatment protocol, and will monitor his response to the medications, and make further adjustments as needed. 2. We will continue to followup. Dictated by... Jennifer Hodgson/devyn TD: 07/05/2016 05:33 JOB #: [id number] Unit #: [id number] #: [id number] Patient: LISA PATRICK BERTHA PROGRESS NOTES Page 1 of 1 X Eb Ayala MD PROGRESS NOTE
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
--- NOTE | ~2016-07-02 | HP ---
Unit #: [id number] #: [id number] Patient: SEDRICK LACEY [id number] [place] [address] [id number] I MR#: [id number] NAME: SEDRICK LACEY. ROOM: P201 Age: 40 Sex: M Admission Date: 07/02/2016 : 1975 Attending Physician: Eb Ayala M.D. Admitting Physician: Eb Ayala M.D. Primary Care Physician: Primary Care Physician No HISTORY AND PHYSICAL HISTORY OF PRESENT ILLNESS Sedrick is a 40 year old admitted to [address] [place] [address] because of his continued drug use. He has had numerous admissions to this facility for treatment of the same. PAST MEDICAL HISTORY Long history of illicit substance abuse to include heroin. PAST SURGICAL HISTORY Inguinal hernia repair. ALLERGIES No known drug allergies. SOCIAL HISTORY Smokes 1 pack per day. Denies alcohol. Admits to a long history of illicit substance abuse. FAMILY HISTORY Medically noncontributory. REVIEW OF SYSTEMS CONSTITUTIONAL: No fever or chills. HEENT: Denies any sore throat, ear pain or runny nose. CARDIOVASCULAR: Denies chest pain, irregular heart rhythm or palpitations. CHEST: Denies shortness of breath or cough. No hemoptysis. GASTROINTESTINAL: Denies nausea, vomiting, diarrhea or chronic constipation. ENDOCRINE: Denies history of increased thirst or urination. No recent significant weight loss or gain. GENITOURINARY: Denies dysuria, frequency, or hematuria. SKIN: Denies any rashes. HEMATOLOGIC: Denies history of increased bleeding or bruising. MUSCULOSKELETAL: Denies any hot, swollen joints. No generalized muscle pain. NEUROLOGIC: Denies problems with vision or speech. No frequent, severe headaches. No numbness, tingling or weakness in any extremities. Denies loss of bladder or bowel control. CURRENT MEDICATIONS 1. Remeron 15 mg q.h.s. 2. Milk of Magnesia p.r.n. 3. Mood and affect Unit #: [id number] #: [id number] Patient: SEDRICK LACEY 4. Tylenol p.r.n. PHYSICAL EXAMINATION GENERAL: Alert, well-nourished, in no apparent distress. VITAL SIGNS: Blood pressure 130/88, heart rate 82, respirations 16, temperature 98.6. WEIGHT: 159. HEIGHT: 5 feet 7 inches. SKIN: Warm and dry without rash or lesion. HEENT: Normocephalic. TMs not viewed. Oral and nasal passages clear. Conjunctivae clear. PERRLA. EOMs intact. NECK: Supple without lymphadenopathy or thyromegaly. HEART: Regular rate and rhythm without murmur. LUNGS: Clear. ABDOMEN: Soft, nontender. : Not done. EXTREMITIES: No evidence of cyanosis, clubbing or edema. Moves all without focal deficit. NEUROLOGICAL: Grossly within normal limits. Cranial Nerves: II: Visual maldonado are intact. III, IV AND : Extraocular movements are intact. Pupils are equal, round and reactive to light. V: Facial sensation is grossly normal. VII: Facial movements and expression are normal. VIII: Auditory acuity grossly intact. IX, X: Uvula is midline. Phonation is normal. XI: Patient shrugs shoulders and turns head normally. XII: Tongue protrudes in the midline. Sensory and Motor Function: Sensory and motor sensation is grossly normal. Motor: moves all extremities well. Coordination: Gait is normal. Deep Tendon Reflexes: Intact. IMPRESSION Psychiatric admission. RECOMMENDATIONS PSYCHIATRIC: Per psychiatrist. MEDICAL: See no contraindications to participate in facility's activities. MEDICAL PROGNOSIS Good. MEDICAL CONDITION Stable. Dictated by... Suni Ayers POdiliaAOdilia-Veronica. for Jennifer Allen/tierney TD: 07/02/2016 21:54 JOB #: [id number] Unit #: [id number] #: [id number] Patient: SEDRICK LACEY HISTORY AND PHYSICAL Page 1 of 1 X Suni Ayers HISTORY AND PHYSICAL
[2016-07-03 12:57] LABS: URINE APPEARANCE CLEAR; URINE BILIRUBIN NEG (NEG); URINE BLOOD NEG (NEG); URINE COLOR YELLOW; URINE GLUCOSE NEG (NEG); URINE KETONE NEG (NEG); URINE LEUKOCYTE ESTERASE NEG (NEG); URINE NITRATE NEG (NEG); URINE PROTEIN NEG (NEG); URINE SPECIFIC GRAVITY 1.012 (1.003-1.035); URINE UROBILINOGEN 0.2 MG/DL (NEG)
[2016-07-03 13:13] LABS: AMPHETAMINE POS (NEG); BARBITURATES NEG (NEG); BENZODIAZEPINES NEG (NEG); COCAINE POS (NEG); MARIJUANA POS (NEG); OPIATES NEG (NEG); TRICYCLIC ANTIDEPRESSANTS NEG (NEG); U METHADONE NEG (NEG)
== END 2016-07-05 12:00 | DRG 885 ==
LOC: P2S 03:14
PROVIDERS: Psychiatry & Neurology Psychiatry
DX: F33.1 Major depressive disorder, recurrent, moderate (principal); F11.20 Opioid dependence, uncomplicated; R45.851 Suicidal ideations; F17.210 Nicotine dependence, cigarettes, uncomplicated
CPT/HCPCS: 80307; 81003

== ENCOUNTER 2016-07-13 23:32 | Inpatient (IN) | payer OTHER ==
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
--- NOTE | ~2016-07-13 | HP ---
Unit #: [id number] #: [id number] Patient: SEDRICK LACEY [id number] [facility] [address] [place] [address] [id number] I MR#: [id number] NAME: SEDRICK LACEY. ROOM: [facility] Age: 40 Sex: M Admission Date: 07/13/2016 : 1975 Attending Physician: Eb Ayala M.D. Admitting Physician: Eb Ayala M.D. Primary Care Physician: Primary Care Physician No HISTORY AND PHYSICAL Sedrick is a 40 year old admitted to [facility] because of his continued drug use. He was just discharged from this facility after treatment for the same. Patient was seen and H and P dated 07/02/16 was reviewed. This is current. No changes. Please see H and P dated 07/02/16. Dictated by... Suni Ayers P.A.-C. for Jennifer Allen/tierney TD: 07/14/2016 21:19 JOB #: [id number] HISTORY AND PHYSICAL Page 1 of 1 X Suni Ayers HISTORY AND PHYSICAL
--- NOTE | ~2016-07-13 | PN ---
Unit #: [id number] #: [id number] Patient: LISA PATRICK [id number] [facility] [address] [place] [address] [id number] I MR#: [id number] NAME: LISA PATRICK. ROOM: [facility] Age: 40 Sex: M Admission Date: 07/13/2016 : 1975 Attending Physician: Eb Ayala M.D. Admitting Physician: Eb Ayala M.D. Primary Care Physician: Primary Care Physician Akanksha CASTILLO NOTES DATE July 15, 2016 DISCUSSION Mr. Patrick is a 40-year-old white male, who was seen today and chart was reviewed and the case was discussed with the staff. Staff reports that he was lying in his bed and described himself to be in distress and discomfort, reporting not feeling good and having significant withdrawal symptoms, and also reports poor sleep at night despite my giving him 50 mg of doxepin. Meanwhile, he has been taking the medications and tolerating them fairly well with no reported side effects. MENTAL STATUS EXAMINATION Young white male, who was casually dressed with fair personal hygiene and appears to be in no acute distress or discomfort. He was awake and alert on interaction with intact orientation. His mood is anxious with a congruent affect. He denies any suicidal or homicidal ideations, and also denies any auditory or visual hallucinations. His insight and judgment remain slightly impaired. TREATMENT PLAN 1. We will continue him on his current medications and detox protocol, and recommend increasing his doxepin to 100 mg at bedtime. 2. We will continue to followup. Dictated by... Jennifer Hodgson/devyn TD: 07/15/2016 09:13 JOB #: [id number] Unit #: [id number] #: [id number] Patient: LISA PATRICK RUBENJN PROGRESS NOTES Page 1 of 1 X Eb Ayala MD PROGRESS NOTE
--- NOTE | ~2016-07-13 | PN ---
Unit #: [id number] #: [id number] Patient: LISA PATRICK [id number] [facility] [address] [place] [address] [id number] I MR#: [id number] NAME: LISA PATRICK. ROOM: [facility] Age: 40 Sex: M Admission Date: 07/13/2016 : 1975 Attending Physician: Eb Ayala M.D. Admitting Physician: Eb Ayala M.D. Primary Care Physician: Primary Care Physician Akanksha CASTILLO NOTES DATE OF SERVICE 07/16/2016 DISCUSSION Mr. Patrick is a 40-year-old white male who was seen today. Chart was reviewed and case was discussed with the staff. He has been anxious, withdrawn, and reports uncomfortable and has been having some anxiety and restlessness. Meanwhile, he has been taking the medications and tolerating them fairly well with no reported side effects. MENTAL STATUS EXAMINATION Young white male who is casually dressed with fair personal hygiene, appears to be in no acute distress or discomfort. The patient was awake and alert on interaction with intact orientation. His mood is anxious with congruent affect. He denies any suicidal or homicidal ideations. His insight and judgment remain slightly impaired. TREATMENT PLAN We will continue him on his current medications and treatment protocol. We will monitor his response to the medications. We will make further adjustments as needed. Dictated by... Jennifer Hodgson/nobleg TD: 07/16/2016 14:51 JOB #: [id number] [facility]ER[facility] PROGRESS NOTES Page 1 of 1 X Eb Ayala MD PROGRESS NOTE
--- NOTE | ~2016-07-13 | DS ---
Unit #: [id number] #: [id number] Patient: LISA PATRICK [id number] [facility] [place] [address] [id number] I MR#: [id number] NAME: LISA PATRICK ROOM: 84 Age: 40 Sex: M Admission Date: 07/13/2016 : 1975 Discharge Date: 07/19/2016 Attending Physician: Eb Ayala M.D. Primary Care Physician: Primary Care Physician No DISCHARGE SUMMARY IDENTIFYING DATA Mr. Patrick is a 40-year-old white male, who is a resident of [place], [place], and he is known to us from previous encounter, was self-referred to the hospital on a voluntary basis. DISCHARGE DIAGNOSES Psychiatric: Major depressive disorder, recurrent, moderate, without psychotic features; opioid dependence, moderate and acute withdrawals; methamphetamine dependence, moderate. Medical: None. Stressors: Moderate psychosocial stressors. HISTORY OF PRESENT ILLNESS Please see initial psychiatric evaluation for details. PAST PSYCHIATRIC HISTORY Please see initial psychiatric evaluation for details. PAST MEDICAL HISTORY Please see initial psychiatric evaluation for details. HOSPITAL COURSE The patient was admitted to the adult chemical dependency and psychiatric unit at [facility] and was oriented to the hospital environment. Routine p.r.n. medications were initiated, and he was started back on his home medications and medications were adjusted and he was closely monitored. He was taking the medications regularly and was tolerating them fairly well and was able to show a fairly decent and therapeutic response with improvement in depression and anxiety and as such, it was decided that he will be discharged home and will continue treatment on an outpatient basis. DISCHARGE MEDICATIONS None. DISCHARGE CONDITION Stable. PROGNOSIS Fair. Dictated by... Eb Ayala M.D. Unit #: [id number] #: [id number] Patient: LISA PATRICK IAA/modl TD: 07/20/2016 07:52 JOB #: [id number] DISCHARGE SUMMARY Page 1 of 1 X Eb Ayala MD X DISCHARGE SUMMARY
--- NOTE | ~2016-07-13 | PN ---
Unit #: [id number] #: [id number] Patient: LISA PATRICK [id number] [facility] [address] [place] [address] [id number] I MR#: [id number] NAME: LISA PATRICK. ROOM: [facility] Age: 40 Sex: M Admission Date: 07/13/2016 : 1975 Attending Physician: Eb Ayala M.D. Admitting Physician: Eb Ayala M.D. Primary Care Physician: Primary Care Physician Akanksha CASTILLO NOTES DATE 07/16/2016 DISCUSSION Mr. Patrick is a 40-year-old white male who was seen today and chart was reviewed. His case was discussed with the staff. He was seen to be anxious, withdrawn, and rather seclusive to himself. Meanwhile, he has been cooperative with treatment recommendations and taking the medications and tolerating them fairly well with no reported side effects. MENTAL STATUS EXAMINATION Young white male who is casually dressed with fair personal hygiene, appears to be in no acute distress or discomfort. He was awake and alert on interaction with intact orientation. His mood was anxious with a congruent affect. He denied any suicidal or homicidal ideations. His insight and judgment remain slightly impaired. TREATMENT PLAN 1. We will continue his current medications and treatment protocol. We will monitor his response to the medications. We will make further adjustments as needed. 2. We will continue to follow up. Dictated by... Jennifer Hodgson/cristino TD: 07/18/2016 12:02 JOB #: [id number] Unit #: [id number] #: [id number] Patient: LISA PATRICK RUBENJN PROGRESS NOTES Page 1 of 1 X Eb Ayala MD PROGRESS NOTE
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
--- NOTE | ~2016-07-13 | CO ---
Unit #: [id number] #: [id number] Patient: SEDRICK LACEY [id number] [place] [address] [id number] I MR#: [id number] NAME: SEDRICK LACEY. ROOM: [facility] Age: 40 Sex: M Admission Date: 07/13/2016 : 1975 Attending Physician: Eb Ayala M.D. Primary Care Physician: Primary Care Physician No Consultation Date: 07/14/2016 CONSULTATION REPORT Sedrick is a 40-year-old admitted because of his continued drug use. At the time of admission, he had some abrasions to his legs and arms. All of these areas are scabbed over. There is no increased redness, swelling, heat, or pus noted. No Rx was necessary. Dictated by... Suni Ayers P.A.-C. for Jennifer Allen/elle TD: 07/15/2016 14:33 JOB #: [id number] CONSULTATION REPORT Page 1 of 1 X Suni Ayers CONSULTATION REPORT
--- NOTE | ~2016-07-13 | PN ---
Unit #: [id number] #: [id number] Patient: LISA PATRICK [id number] [facility] [address] [place] [address] [id number] MR#: [id number] NAME: LISA PATRICK. ROOM: [facility] Age: 40 Sex: M Admission Date: 07/13/2016 : 1975 Attending Physician: Eb Ayala M.D. Admitting Physician: Eb Ayala M.D. Primary Care Physician: Primary Care Physician Akanksha CASTILLO NOTES DATE July 18, 2016 DISCUSSION Mr. Patrick is a 40-year-old white male, who was seen today and chart was reviewed and the case was discussed with the staff. He has been anxious, withdrawn, and seclusive to himself. Meanwhile, he has been cooperative with the treatment recommendations and he has been taking the medications and reporting no side effects. MENTAL STATUS EXAMINATION Young white male, who was casually dressed with fair personal hygiene and appears to be in no acute distress or discomfort. He was awake and alert on interaction with intact orientation. His mood is anxious with a congruent affect. He denies any suicidal or homicidal ideations. His insight and judgment remain slightly impaired. TREATMENT PLAN 1. We will continue him on his current medications and treatment protocol, and will monitor his response to the medications, and make further adjustments as needed. 2. We will continue to followup. Dictated by... Jennifer Hodgson/devyn TD: 07/19/2016 10:42 JOB #: [id number] Unit #: [id number] #: [id number] Patient: LISA PATRICK RUBENJN PROGRESS NOTES Page 1 of 1 X Eb Ayala MD PROGRESS NOTE
[2016-07-14 09:47] LABS: BASOPHIL% 0.5 % (0-2.5); EOSINOPHIL# 0.2 X10e3 (0-0.7); EOSINOPHIL% 2.7 % (0.0-7.0); HEMATOCRIT 44.4 % (38.0-50.0); HEMOGLOBIN 14.7 gm/dL (13.0-16.0); LYMPHOCYTE# 2.2 X10e3 (1.0-3.5); LYMPHOCYTE% 27.6 % (17.0-45.0); MEAN CELL VOLUME 88.9 FL (83-96); MEAN CORPUSCULAR HEMOGLOBIN 29.4 PG (28-34); MEAN PLATELET VOLUME 9.3 FL (6.5-11.5); MONOCYTE% 12.1 % (3.0-12.0); NEUTROPHIL# 4.5 X10e3 (1.5-7.1); NEUTROPHIL% 57.1 % (40-75); PLATELET COUNT 206 X10e3 (140-420); RED BLOOD COUNT 4.99 X10e (3.90-5.60); RED CELL DISTRIBUTION WIDTH 14.2 % (11.0-15.5); WHITE BLOOD COUNT 7.9 X10e3 (4.0-10.5)
[2016-07-14 09:49] LABS: DIFF IND NO
[2016-07-14 10:00] LABS: ALBUMIN SERUM 3.2 g/dL (3.5-5.0); ALKALINE PHOSPHATASE 83 U/L (32-92); ALT (SGPT) 28 U/L (10-40); AST (SGOT) 22 U/L (10-42); BILIRUBIN,TOTAL 0.3 mg/dL (0.2-2.0); CALCIUM SERUM 8.7 mg/dL (8.4-10.2); CARBON DIOXIDE 24 mmol/L (22-31); CHLORIDE 106 mmol/L (100-111); CREATININE SERUM 0.6 mg/dL (0.6-1.4); GLOM FILT RATE Estimated 127.6 mL/min (>60); GLUCOSE FASTING 116 mg/dL (70-110); POTASSIUM 3.6 mmol/L (3.5-5.1); PROTEIN TOTAL SERUM 5.8 g/dL (6.0-8.3); SODIUM 139 mmol/L (135-145)
[2016-07-14 10:01] LABS: BLOOD UREA NITROGEN <5 mg/dL (9-23); BUN/CREATININE RATIO 8.33
[2016-07-15 09:40] LABS: URINE APPEARANCE CLEAR; URINE BILIRUBIN NEG (NEG); URINE BLOOD NEG (NEG); URINE COLOR YELLOW; URINE GLUCOSE NEG (NEG); URINE KETONE NEG (NEG); URINE LEUKOCYTE ESTERASE NEG (NEG); URINE NITRATE NEG (NEG); URINE PH 8.5 (5-8); URINE PROTEIN NEG (NEG); URINE SPECIFIC GRAVITY 1.009 (1.003-1.035); URINE UROBILINOGEN 0.2 MG/DL (NEG)
[2016-07-15 10:58] LABS: AMPHETAMINE NEG (NEG); BARBITURATES NEG (NEG); BENZODIAZEPINES NEG (NEG); COCAINE NEG (NEG); MARIJUANA POS (NEG); OPIATES NEG (NEG); TRICYCLIC ANTIDEPRESSANTS POS (NEG); U METHADONE NEG (NEG)
== END 2016-07-19 09:10 | disposition home or self-care (01) | DRG 885 ==
LOC: P1E 23:32
PROVIDERS: Psychiatry & Neurology Psychiatry
PROC: HZ2ZZZZ Detoxification Services for Substance Abuse Treatment (ICD-10-PCS; principal; 2016-07-13)
DX: F33.1 Major depressive disorder, recurrent, moderate (principal); R45.851 Suicidal ideations; F11.23 Opioid dependence with withdrawal; F17.210 Nicotine dependence, cigarettes, uncomplicated; F15.10 Other stimulant abuse, uncomplicated; F13.10 Sedative, hypnotic or anxiolytic abuse, uncomplicated
CPT/HCPCS: 80053; 80307; 81003; 85025

== ENCOUNTER 2016-11-02 16:43 | Inpatient (IN) | payer OTHER ==
[~2016-11-02] VITALS: Ht 170.2 cm; Wt 68.0 kg
--- NOTE | ~2016-11-02 | PN ---
Unit #: [id number] #: [id number] Patient: LISA PATRICK [id number] [facility] [address] [place] [address] [id number] I MR#: [id number] NAME: LISA PATRICK. ROOM: [facility] Age: 41 Sex: M Admission Date: 11/02/2016 : 1975 Attending Physician: Eb Ayala M.D. Admitting Physician: Eb Ayala M.D. Primary Care Physician: Primary Care Physician Akanksha STONE PROGRESS NOTES DATE 11/06/2016 DISCUSSION Mr. Patrick is a 41-year-old white male who was seen today and chart was reviewed and case was discussed with the staff. He has been anxious, withdrawn and rather seclusive to himself. Meanwhile, he has been doing fairly well and has been showing improvement in his mood and daily functioning. He has been compliant with treatment recommendations and has been taking medications and tolerating them fairly well. MENTAL STATUS EXAMINATION Young white male who was casually dressed with fair personal hygiene and appears to be in no acute distress or discomfort. He was awake and alert with intact orientation. His mood was anxious with congruent affect. His speech is slow and goal-directed. He denies any suicidal or homicidal ideations. His insight and judgement remains slightly impaired. TREATMENT PLAN 1. Will continue on his current medications and treatment protocol. Will monitor his response to the medications and make further adjustments as needed. 2. Will continue to follow up. Dictated by... Jennifer Hodgson/tierney TD: 11/06/2016 17:24 JOB #: [id number] Unit #: [id number] #: [id number] Patient: LISA PATRICK RUBENJN PROGRESS NOTES Page 1 of 1 X Eb yAala MD PROGRESS NOTE
--- NOTE | ~2016-11-02 | HP ---
Unit #: [id number] #: [id number] Patient: SEDRICK LACEY [id number] [place] [address] [id number] I MR#: [id number] NAME: SEDRICK LACEY. ROOM: 82 Age: 41 Sex: M Admission Date: 11/02/2016 : 1975 Attending Physician: Eb Ayala M.D. Admitting Physician: Eb Ayala M.D. Primary Care Physician: Primary Care Physician No HISTORY AND PHYSICAL HISTORY OF PRESENT ILLNESS Sedrick is a 41 year old admitted to [facility] because of his continued drug use which includes IV heroin and methamphetamine. PAST MEDICAL HISTORY Long history of illicit substance abuse to include IV and meth. PAST SURGICAL HISTORY Inguinal hernia repair. ALLERGIES No known drug allergies. SOCIAL HISTORY Smokes one pack per day. Denies alcohol. Admits to a long history of illicit substance abuse. FAMILY HISTORY Medically noncontributory. REVIEW OF SYSTEMS CONSTITUTIONAL: No fever or chills. HEENT: Denies any sore throat, ear pain or runny nose. CARDIOVASCULAR: Denies chest pain, irregular heart rhythm or palpitations. CHEST: Denies shortness of breath or cough. No hemoptysis. GASTROINTESTINAL: Denies nausea, vomiting, diarrhea or chronic constipation. ENDOCRINE: Denies history of increased thirst or urination. No recent significant weight loss or gain. GENITOURINARY: Denies dysuria, frequency, or hematuria. SKIN: Denies any rashes. HEMATOLOGIC: Denies history of increased bleeding or bruising. MUSCULOSKELETAL: Denies any hot, swollen joints. No generalized muscle pain. NEUROLOGIC: Denies problems with vision or speech. No frequent, severe headaches. No numbness, tingling or weakness in any extremities. Denies loss of bladder or bowel control. CURRENT MEDICATIONS Detox protocol. PHYSICAL EXAMINATION Unit #: [id number] #: [id number] Patient: SEDRICK LACEY GENERAL: Alert, well-nourished, in no apparent distress. VITAL SIGNS: Blood pressure 100/60, heart rate 80, respirations 16, temperature 98.6. WEIGHT: 150. HEIGHT: 5 foot 7 inches. SKIN: Warm and dry without rash. He does have a large abrasion along his right elbow. This area has completely scabbed over and there is no increased redness, swelling, heat or pus noted. HEENT: Normocephalic. TMs not viewed. Oral and nasal passages clear. Conjunctivae clear. Pupils equal, round and reactive to light and accommodation. Extraocular movements intact. NECK: Supple without lymphadenopathy or thyromegaly. HEART: Regular rate and rhythm without murmur. LUNGS: Clear. ABDOMEN: Soft, nontender. : Not done. EXTREMITIES: No evidence of cyanosis, clubbing or edema. Moves all extremities without focal deficit. NEUROLOGICAL: Grossly within normal limits. Cranial Nerves: II: Visual maldonado are intact. III, IV AND : Extraocular movements are intact. Pupils are equal, round and reactive to light. V: Facial sensation is grossly normal. VII: Facial movements and expression are normal. VIII: Auditory acuity grossly intact. IX, X: Uvula is midline. Phonation is normal. XI: Patient shrugs shoulders and turns head normally. XII: Tongue protrudes in the midline. Sensory and Motor Function: Sensory and motor sensation is grossly normal. Motor: moves all extremities well. Coordination: Gait is normal. Deep Tendon Reflexes: Intact. IMPRESSION 1. Psychiatric admission. 2. Abrasion to his right elbow sustained prior to this admission. RECOMMENDATIONS PSYCHIATRIC: Per psychiatrist. MEDICAL: I see no contraindications to participating in facility's activities. MEDICAL PROGNOSIS Good. MEDICAL CONDITION Stable. Dictated by... Suni Ayers P.A.-C. for Jennifer Allen/masoud TD: 11/03/2016 21:59 JOB #: [id number] Unit #: [id number] #: [id number] Patient: SEDRICK LACEY HISTORY AND PHYSICAL Page 1 of 1 X Suni Ayers HISTORY AND PHYSICAL
--- NOTE | ~2016-11-02 | DS ---
Unit #: [id number] #: [id number] [facility]: [facility] [id number] [facility] [place] [address] [id number] I MR#: [id number] NAME: LISA LACEY. ROOM: 73 Age: 41 Sex: M Admission Date: 11/02/2016 : 1975 Discharge Date: 11/08/2016 Attending Physician: Eb Ayala M.D. Primary Care Physician: Primary Care Physician No DISCHARGE SUMMARY IDENTIFICATION DATA Darnell is a 41-year-old single white male who is a resident of [place], [place], and was self-referred to the hospital on voluntary basis. DISCHARGE DIAGNOSES PSYCHIATRIC: Major depressive disorder, recurrent, moderate, without psychotic features. Opiate dependence, moderate, in acute withdrawal. Benzodiazepine dependence, moderate. Amphetamine abuse, moderate. MEDICAL: None. STRESSORS: Mild psychosocial stressors. HISTORY OF PRESENT ILLNESS Same as in initial psychiatric evaluation. PAST PSYCHIATRIC HISTORY Same as in initial psychiatric evaluation. PAST MEDICAL HISTORY Same as in initial psychiatric evaluation. HOSPITAL COURSE The patient was admitted to the adult chemical dependency unit at [facility] radha Alfredo and was oriented to the hospital environment. Routine p.r.n. medications were initiated, and he was started on the detox protocol and was closely monitored. He was initially seen to be anxious, withdrawn, and rather seclusive to himself though was calm and cooperative with treatment recommendation and was taking the medications regularly and was tolerating them fairly well and was able to come out of the detox without any complications, and was willing to continue treatment on outpatient basis. As such it was decided that he will be kept on his current medications and will be discharged home. We will continue treatment on outpatient basis. DISCHARGE MEDICATIONS None. CONDITION AT DISCHARGE Stable. PROGNOSIS Fair. Unit #: [id number] #: [id number] Patient: LISA LACEY Dictated by... Jennifer Hodgson/tam TD: 11/10/2016 07:30 JOB #: [id number] DISCHARGE SUMMARY Page 1 of 1 X Eb Ayala MD X DISCHARGE SUMMARY
--- NOTE | ~2016-11-02 | PN ---
Unit #: [id number] #: [id number] Patient: LISA PATRICK [id number] [facility] [address] [place] [address] [id number] I MR#: [id number] NAME: LISA PATRICK. ROOM: [facility] Age: 41 Sex: M Admission Date: 11/02/2016 : 1975 Attending Physician: Eb Ayala M.D. Admitting Physician: Eb Ayala M.D. Primary Care Physician: Primary Care Physician Akanksha CASTILLO NOTES DATE November 05, 2016 DISCUSSION Mr. Patrick is a 41-year-old white male, who was seen today and chart was reviewed and the case was discussed with the staff. He has been anxious, withdrawn, and seclusive to himself. Meanwhile, he has been cooperative with the treatment recommendations and he has been taking the medications and tolerating them fairly well with no reported side effects. MENTAL STATUS EXAMINATION Young white male, who was casually dressed with fair personal hygiene and appears to be in no acute distress or discomfort. He was awake and alert on interaction with intact orientation. His mood is anxious with a congruent affect. His speech is slow and goal-directed. He denies any suicidal or homicidal ideations, and also denies any auditory or visual hallucinations. His insight and judgment remain slightly impaired. TREATMENT PLAN 1. We will continue him on his current medications and treatment protocol, and will monitor his response to the medications, and make further adjustments as needed. 2. We will continue to followup. Dictated by... Jennifer Hodgson/devyn TD: 11/05/2016 08:23 JOB #: [id number] Unit #: [id number] #: [id number] Patient: LISA PATRICK BERTHA PROGRESS NOTES Page 1 of 1 X Eb Ayala MD PROGRESS NOTE
--- NOTE | ~2016-11-02 | PA ---
Unit #: [id number] #: [id number] [facility] [id number] [facility] [address] [place] [address] [id number] I MR#: [id number] NAME: LISA PATRICK. ROOM: P182 Age: 41 Sex: M Admission Date: 11/02/2016 : 1975 Date of Assessment: 11/03/2016 Attending Physician: Eb Ayala M.D. Admitting Physician: Eb Ayala M.D. Primary Care Physician: Primary Care Physician No PSYCHIATRIC ASSESSMENT DATE OF SERVICE 11/03/2016. IDENTIFYING DATA Mr. Patrick is a 41-year-old single white male, who is a resident of [place], [place], and was self-referred to the hospital on a voluntary basis. CHIEF COMPLAINT "I just don't feel like living." HISTORY OF PRESENT ILLNESS Mr. Patrick is a 41-year-old white male with a dual-diagnosis of mood disorder and substance abuse, who was self-referred to the hospital stating that he does not feel like living anymore and "I've been doing heroin every day the last 2 months. I'm doing ice every day too." The patient reports that he has been using a gram of IV heroin on a daily basis and has been using a gram of methamphetamine on a daily basis and does report increasing depression, anxiety, significant consequences because of his addiction and reports poor energy level, psychomotor retardation, feelings of hopelessness and helplessness, and suicidal ideations, and reports history of suicide attempt by shooting too much drugs a few months ago and reports that he has been having thoughts of overdosing on heroin for the last 2 days and was seen to be a danger to self and therefore recommendation for an inpatient level of care for safety and stabilization was made and the patient was transferred to us. SUBSTANCE ABUSE HISTORY The patient reports a history of substance abuse including cannabis, opioids, amphetamines, and benzodiazepines, and reports that he has been using 2 bars of Xanax on a daily basis and a gram of methamphetamine and a gram of heroin on a daily basis. PAST PSYCHIATRIC HISTORY The patient has had a history of inpatient psychiatric hospitalization at [facility] radha Alfredo in the past, and review of the medical records indicates currently he is not active in any treatment program, is not seeing a psychiatrist, and is not taking any psychotropic medications. PAST MEDICAL HISTORY No acute or chronic medical illnesses. ALLERGIES Unit #: [id number] #: [id number] Patient: LISA PATRICK No known medication allergies. CURRENT MEDICATIONS None. PERSONAL AND SOCIAL HISTORY A 41-year-old white male, who reports that he is single, unemployed and essentially homeless and has poor social support system. MENTAL STATUS EXAMINATION Young white male, who was casually dressed with a fair personal hygiene and appears to be in no acute distress or discomfort. He was awake and alert on interaction with intact orientation. His mood was anxious with a congruent affect. Speech was slow and goal directed. He reports having suicidal ideations, but denies any homicidal ideations, and also denies any auditory or visual hallucinations. His insight and judgment remain significantly impaired. DIAGNOSTIC IMPRESSION Psychiatric: Major depressive disorder, recurrent, moderate, without psychotic features. Opioid dependence, moderate, in acute withdrawals. Benzodiazepine dependence, moderate, in acute withdrawals. Methamphetamine dependence, moderate. Medical: None. Stressors: Moderate psychosocial stressors. TREATMENT PLAN 1. The patient has presented with a history of mood disorder and substance abuse, and has been decompensating. We will recommend inpatient hospitalization for safety and stabilization and detoxification. We will start him on detox protocol. We will monitor response. 2. Supportive therapy was provided to the patient. ESTIMATED LENGTH OF STAY 4 to 5 days. ABILITY TO HELP SELF Limited. WILLINGNESS TO HELP SELF The patient appears to be willing to help self. STRENGTHS 1. Communicative. 2. Cooperative. PROBLEMS 1. Chronic dysphoric symptoms. 2. Poor social support system. DISCHARGE CRITERIA This will be contingent upon the patient's ability to show resolution of his depression and anxiety, and his ability to stay safe to himself, particularly after discharge from the hospital. Unit #: [id number] #: [id number] Patient: LISA PATRICK Dictated by... Eb Ayala M.D. JED/elle TD: 11/03/2016 06:50 JOB #: [id number] PSYCHIATRIC ASSESSMENT Page 1 of 1 X Eb Ayala MD PSYCHIATRIC ASSESSMENT
--- NOTE | ~2016-11-02 | PN ---
Unit #: [id number] #: [id number] Patient: LISA PATRICK [id number] [facility] [address] [place] [address] [id number] MR#: [id number] NAME: LISA PATRICK. ROOM: 73 Age: 41 Sex: M Admission Date: 11/02/2016 : 1975 Attending Physician: Eb Ayala M.D. Admitting Physician: Eb Ayala M.D. Primary Care Physician: Primary Care Physician Akanksha STONE PROGRESS NOTES DATE 11/07/2016 DISCUSSION Mr. Patrick is a 41-year-old, white male who was seen today and chart was reviewed and case was discussed with the staff. He has been doing fairly well and appears to be coming out of the detox without any complications. He has been compliant with treatment recommendations. He has been taking the medication and tolerating them fairly well with no reported side effects. MENTAL STATUS EXAM Young white male who was casually dressed with fair personal hygiene, appears to be in no acute distress or discomfort. He was awake and alert on interaction with intact orientation. His mood was anxious with congruent affect. His speech was slow and goal directed. He denies any suicidal or homicidal ideation. Also, denies any auditory or visual hallucinations. His insight and judgement remains slightly impaired. TREATMENT PLAN 1. We will continue him on his current medications and treatment protocol. We will monitor his response to the medication and make further adjustments as needed. 2. We will continue to follow up. Dictated by... Jennifer Hodgson/masoud TD: 11/08/2016 05:43 JOB #: [id number] Unit #: [id number] #: [id number] Patient: LISA PATRICK PROGRESS NOTES Page 1 of 1 X Eb Ayala MD PROGRESS NOTE
--- NOTE | ~2016-11-02 | PN ---
Unit #: [id number] #: [id number] Patient: LISA PATRICK [id number] [facility] [address] [place] [address] [id number] I MR#: [id number] NAME: LISA PATRICK. ROOM: [facility] Age: 41 Sex: M Admission Date: 11/02/2016 : 1975 Attending Physician: Eb Ayala M.D. Admitting Physician: Eb Ayala M.D. Primary Care Physician: Primary Care Physician Akanksha STONE PROGRESS NOTES DATE 11/04/2016 DISCUSSION Mr. Patrick is a 41-year-old white male who was seen today and chart was reviewed and case was discussed with the staff. He has been anxious, withdrawn, depressed and seclusive to himself and reports persistent detox symptoms and has not been able to function very well. Meanwhile, he has been taking medications and tolerating them fairly well with no reported side effects. MENTAL STATUS EXAMINATION Young white male who was casually dressed with fair personal hygiene and appears to be in no acute distress or discomfort. He was awake and alert on interaction with intact orientation. His mood was anxious and depressed with congruent affect. His speech is slow and goal-directed. He reports having suicidal ideation but denies any homicidal ideation and also denies any auditory or visual hallucinations. His insight and judgement remains slightly impaired. TREATMENT PLAN 1. Will continue on his current medications and treatment protocol. Will monitor his response to the medications and make further adjustments as needed. 2. Will continue to follow up. Dictated by... Jennifer Hodgson/tierney TD: 11/04/2016 17:47 JOB #: [id number] Unit #: [id number] #: [id number] Patient: LISA PATRICK RUBENJN PROGRESS NOTES Page 1 of 1 X Eb Ayala MD PROGRESS NOTE
[2016-11-03 09:43] LABS: BASOPHIL% 0.6 % (0-2.5); EOSINOPHIL# 0.1 X10e3 (0-0.7); HEMATOCRIT 40.4 % (38.0-50.0); HEMOGLOBIN 13.7 gm/dL (13.0-16.0); LYMPHOCYTE# 2.3 X10e3 (1.0-3.5); LYMPHOCYTE% 30.6 % (17.0-45.0); MEAN CELL VOLUME 88.4 FL (83-96); MEAN CORPUSCULAR HEMOGLOBIN 29.9 PG (28-34); MEAN CORPUSCULAR HGB CONC 33.9 g/dL (30-36); MEAN PLATELET VOLUME 8.2 FL (6.5-11.5); MONOCYTE# 0.9 X10e3 (0-1.0); MONOCYTE% 12.2 % (3.0-12.0); NEUTROPHIL# 4.1 X10e3 (1.5-7.1); NEUTROPHIL% 54.6 % (40-75); PLATELET COUNT 245 X10e3 (140-420); RED BLOOD COUNT 4.57 X10e (3.90-5.60); RED CELL DISTRIBUTION WIDTH 14.1 % (11.0-15.5); WHITE BLOOD COUNT 7.6 X10e3 (4.0-10.5)
[2016-11-03 09:45] LABS: DIFF IND NO
[2016-11-03 10:15] LABS: ALBUMIN SERUM 3.2 g/dL (3.5-5.0); BILIRUBIN,TOTAL 0.7 mg/dL (0.2-2.0); BUN/CREATININE RATIO 16.66; CALCIUM SERUM 8.8 mg/dL (8.4-10.2); CREATININE SERUM 0.6 mg/dL (0.6-1.4); GLOM FILT RATE Estimated 126.7 mL/min (>60); POTASSIUM 4.2 mmol/L (3.5-5.1); PROTEIN TOTAL SERUM 6.1 g/dL (6.0-8.3)
[2016-11-04 10:12] LABS: URINE APPEARANCE HAZY; URINE BILIRUBIN NEG (NEG); URINE BLOOD NEG (NEG); URINE COLOR YELLOW; URINE GLUCOSE NORM (NORM); URINE KETONE NEG (NEG); URINE LEUKOCYTE ESTERASE 2+ (NEG); URINE NITRATE NEG (NEG); URINE PROTEIN NEG (NEG); URINE SPECIFIC GRAVITY 1.015 (1.003-1.035); URINE UROBILINOGEN NORM (NORM)
[2016-11-04 10:40] LABS: URINE AMORPHOUS SEDIMENT AMORP PHOSPHATES; URINE CRYSTALS CALCIUM OXALATE /[HPF]
[2016-11-04 10:41] LABS: URBCS1 AUWI 0-2 /[HPF] (0-2); URINE BACTERIA AUWI 1+ (NEGATIVE); UWBCS1 AUWI 25-50 (0-5)
[2016-11-04 11:00] LABS: AMPHETAMINE NEG (NEG); BARBITURATES NEG (NEG); BENZODIAZEPINES POS (NEG); COCAINE NEG (NEG); MARIJUANA POS (NEG); OPIATES POS (NEG); TRICYCLIC ANTIDEPRESSANTS NEG (NEG); U METHADONE NEG (NEG)
== END 2016-11-08 10:25 | DRG 897 ==
LOC: P1E 18:40
PROVIDERS: Psychiatry & Neurology Psychiatry
PROC: HZ2ZZZZ Detoxification Services for Substance Abuse Treatment (ICD-10-PCS; principal; 2016-11-02)
DX: F11.23 Opioid dependence with withdrawal (principal); F33.1 Major depressive disorder, recurrent, moderate; F15.20 Other stimulant dependence, uncomplicated; F13.239 Sedative, hypnotic or anxiolytic dependence with withdrawal, unspecified; F41.9 Anxiety disorder, unspecified; F17.210 Nicotine dependence, cigarettes, uncomplicated; S50.311A Abrasion of right elbow, initial encounter
CPT/HCPCS: 80053; 80307; 81003; 85025; 86592